=== PATIENT | male | born 2000 | race Caucasian/White ===

== ENCOUNTER 2021-09-16 20:28 | Emergency (ER) | payer MEDICAID ==
[~2021-09-16] VITALS: Ht 182.9 cm; Wt 98.0 kg
[2021-09-16 20:33] VITALS: BP 152/86
[2021-09-16] MEDS ORDERED: P20 MT (20:44)
[2021-09-16] MEDS ORDERED: DIPH25TA62 MT (20:44)
[2021-09-16] MEDS ORDERED: EPIN0.3P3 IM (20:56)
[2021-09-16] MEDS: PREDNISONE 20MG TABLET PO ONE (21:16)
== END 2021-09-16 21:41 | disposition home or self-care (01) ==
LOC: ER 20:28
DX: T78.40XA Allergy, unspecified, initial encounter (principal); I10 Essential (primary) hypertension; Z13.9 Encounter for screening, unspecified; X58.XXXA Exposure to other specified factors, initial encounter
CPT/HCPCS: 99283; J7512